=== PATIENT | male | born 1940 | race Caucasian/White ===

== ENCOUNTER → 2016-07-22 | Outpatient (CLI) | payer OTHER ==
[~2016-07-22] MED LIST: ALT10 PO; ASPEC81 PO; CRG625 PO; EZET10TA38 PO; FENO145T26 PO
== END | disposition home or self-care (01) ==
LOC: C.PATHSPEC 17:52
PROVIDERS: ATTEND Urology
DX: N40.2 Nodular prostate without lower urinary tract symptoms (principal)